=== PATIENT | female | born 1970 | race Caucasian/White ===

== ENCOUNTER → 2022-03-03 08:08 | Outpatient (CLI) | payer SELFPAY ==
[2022-03-03 12:58] LABS: Vitamin B12 566 pg/mL (211-911); Vitamin D,25 Hydroxy 68.6 ng/mL
[2022-03-03 14:05] LABS: Estradiol 75.8 pg/mL; Follicle Stimulating Hormone 13.3 mIU/mL; Free T3 2.8 pg/mL (2.18-3.98); Luteinizing Hormone 21.7 mIU/mL; T4 Free Direct 0.92 ng/dL (0.76-1.46); Thyroid Stim Hormone (TSH) 2.31 uIU/mL (0.358-3.74)
[2022-03-04 08:28] LABS: Thyroid Peroxidase AB < 8 IU/mL (0-34)
== END ==
DX: E55.9 Vitamin D deficiency, unspecified (principal); E34.9 Endocrine disorder, unspecified; E53.8 Deficiency of other specified B group vitamins
CPT/HCPCS: 36415; 82306; 82607; 82627; 82670; 82746; 83001; 83002; 84144; 84403; 84439; 84443; 84481; 86376; 82626